=== PATIENT | male | born 1970 | race Two or more races ===

== ENCOUNTER 2016-03-26 01:25 | Emergency (ER) | payer BC ==
[~2016-03-26] VITALS: Ht 160 cm; Wt 68.5 kg
--- NOTE | 2016-03-26 01:46 | PHYS DOC ---
Past Medical History Past Medical History: No Pertinent History Past Surgical History: Appendectomy Alcohol Use: Occasionally Drug Use: None Adult General Chief Complaint Chief Complaint: SORE THROAT HPI HPI Patient is a 45 year old male who presents with sore throat. Patient reports pain started yesterday. He denies fever. He does have a cough. No nausea or vomiting. He has tried home remedies such as honey with insufficient relief. No other acute complaints. Review of Systems Review of Systems Constitutional: Denies fever or chills HENT: Sore throat Respiratory: Cough. Denies shortness of breath Cardiovascular: Denies chest pain GI: Denies abdominal pain, nausea, vomiting, bloody stools or diarrhea Integument: Denies rash or skin lesions Neurologic: Denies headache, focal weakness or sensory changes Current Medications Current Medications Current Medications Medications (Trade) Dose Ordered Sig/Tanna Start Time Stop Time Status Last Admin Dose Admin Naproxen (Naprosyn) 500 mg 1X ONCE 03/26/16 02:00 03/26/16 02:01 DC 03/26/16 02:33 500 MG Allergies Allergies Allergies Coded Allergies Type Severity Reaction Last Updated Verified No Known Drug Allergies 03/26/16 No Physical Exam Physical Exam Constitutional: Well developed, well nourished, no acute distress, non-toxic appearance HENT: Normocephalic, atraumatic, bilateral external ears normal. Oropharynx mildly erythematous without exudate; mild anterior cervical lymphadenopathy Eyes: EOMI, conjunctiva normal, no discharge Neck: Normal range of motion, no stridor Cardiovascular: Heart rate normal, regular rhythm, no murmur Lungs & Thorax: Bilateral breath sounds clear to auscultation Abdomen: Bowel sounds normal, soft, non-distended, no TTP Skin: Warm, dry, no erythema, no rash Extremities: No obvious deformity, no edema Neurologic: Alert and oriented X 3, no gross deficits noted Current Patient Data Vital Signs Vital Signs Date Time Temp Pulse Resp B/P Pulse Ox O2 Delivery O2 Flow Rate FiO2 03/26/16 02:30 78 143/94 03/26/16 01:38 98.7 16 95 Room Air 98.7 EKG EKG [] Radiology/Procedures Radiology/Procedures [] Course & Med Decision Making Course & Med Decision Making Pertinent Labs and Imaging studies reviewed. (See chart for details) Patient is 45-year-old male who presents with sore throat. Possible viral infection, given cough. Rapid strep ordered. Dose of naproxen given for pain control. Rapid strep negative. Discussed results with patient and veterans rehabilitation counselor. Patient discharged home with instructions for follow-up and return precautions. Petrona Disclaimer Petrona Disclaimer This electronic medical record was generated, in whole or in part, using a voice recognition dictation system. Departure Departure Impression: Primary Impression: Pharyngitis Disposition: HOME, SELF-CARE Condition: STABLE Patient Instructions: Viral Pharyngitis Additional Instructions: Thank you for allowing us to provide care today in the Emergency Department. Take the provided medication as directed. Schedule a follow up appointment with your primary care doctor. Return promptly to the Emergency Department if you develop any new or concerning symptoms. Scripts Naproxen 125 Mg/5 Ml Oral.[id number] Mg PO BID #120 ML Prov:TAYA LEACH MD 03/26/16 TAYA LEACH MD Mar 26, 2016 01:46
[2016-03-26] MEDS ORDERED: NAPROXEN 500 MG TABLET PO ONE (02:00)
[2016-03-26 02:30] VITALS: BP 143/94
[2016-03-26] MEDS ORDERED: NAPR125O4 PO (02:35)
[2016-03-26 08:52] LABS: NEGATIVE OBC STREP NEG; POSITIVE OBC STREP POS
== END 2016-03-26 02:39 | disposition home or self-care (01) ==
LOC: ER 01:25
DX: J02.9 Acute pharyngitis, unspecified (principal)
CPT/HCPCS: 87070; 87880; 99283

== ENCOUNTER 2017-08-03 11:00 | Emergency (ER) | payer OTHER, BC ==
[2017-08-03 11:28] LABS: ADD MAN DIFF? NO
[2017-08-03 11:35] LABS: BASO # 0.1 x10^3/uL (0.0-0.2); BASO % 1 % (0-3); EOS # 0.2 x10^3/uL (0.0-0.7); EOS % 2 % (0-3); HEMATOCRIT 43.6 % (39.0-53.0); HEMOGLOBIN 14.9 g/dL (13.0-17.5); LYMPH # 3.4 x10^3/uL (1.0-4.8); LYMPH % 35 % (24-48); MEAN CORPUSCULAR HEMOGLOBIN 30 pg (25-35); MEAN CORPUSCULAR HGB CONC 34 g/dL (31-37); MEAN CORPUSCULAR VOLUME 87 fL (79-100); MONO # 0.7 x10^3/uL (0.0-1.1); MONO % 8 % (0-9); NEUT # 5.4 x10^3uL (1.8-7.7); NEUT % 55 % (31-73); PLATELET COUNT 195 x10^3/uL (140-400); RED BLOOD COUNT 5.01 x10^6/uL (4.30-5.70); RED CELL DISTRIBUTION WIDTH 13.3 % (11.5-14.5); WHITE BLOOD COUNT 9.8 x10^3/uL (4.0-11.0)
[2017-08-03 11:38] LABS: ANION GAP 7 (6-14); BLOOD UREA NITROGEN 10 mg/dL (8-26); BUN/CREATININE RATIO 13 (6-20); CARBON DIOXIDE 27 mmol/L (21-32); CHLORIDE 103 mmol/L (98-107); CREATININE 0.8 mg/dL (0.7-1.3); GLUCOSE 97 mg/dL (70-99); POTASSIUM 4.2 mmol/L (3.5-5.1); SODIUM 137 mmol/L (136-145)
[2017-08-03 11:44] LABS: ALBUMIN 3.9 g/dL (3.4-5.0); ALK PHOS 97 U/L (46-116); ALT (SGPT) 70 U/L (16-63); AST (SGOT) 39 U/L (15-37); TOTAL BILIRUBIN 0.6 mg/dL (0.2-1.0); TOTAL PROTEIN 7.8 g/dL (6.4-8.2)
[2017-08-03 11:47] LABS: TROPONINI < 0.017 ng/mL (0.000-0.055)
== END 2017-08-03 13:06 | disposition home or self-care (01) ==
LOC: ER 11:00
DX: R07.2 Precordial pain (principal); Z82.49 Family history of ischemic heart disease and other diseases of the circulatory system; F17.210 Nicotine dependence, cigarettes, uncomplicated
CPT/HCPCS: 36415; 71046; 80053; 84484; 85025; 93005; 99285

== ENCOUNTER 2020-06-20 12:43 | Emergency (ER) | payer SELFPAY ==
[~2020-06-20] VITALS: Ht 157.5 cm; Wt 73.6 kg
[~2020-06-20 12:43] MED LIST: NAPR125O4 PO
--- NOTE | 2020-06-20 14:27 | RAD ---
Bilateral lower extremity venous Doppler dated 06/20/2020. No comparison available. Clinical data indication: Leg pain. FINDINGS: Grayscale, color-flow and spectral waveform analysis performed to include the deep venous system of [place] lower extremity. There is normal compressibility, phasicity and augmentation of flow throughout. No filling defects are seen. IMPRESSION: No evidence of lower extremity deep vein thrombosis. Electronically signed by: Antonio Ramirez MD (06/20/2020 2:25 PM) [id number]
[2020-06-20] MEDS: cloNIDine HCL 0.1 MG TABLET PO ONE (15:52)
[2020-06-20 17:02] VITALS: BP 145/91
--- NOTE | 2020-06-20 17:09 | PHYS DOC ---
Past Medical History Past Medical History: No Pertinent History, Hypertension Past Surgical History: Appendectomy, Other Additional Past Surgical Histo: kidney stones Smoking Status: Never Smoker Alcohol Use: Occasionally Drug Use: None General Adult EDM: Chief Complaint: LOWER EXTREMITY SWELLING HPI: HPI: Patient is a 49 year old male with a history of hypertension not on any medication who presents to the ED today complaining of 5 out of 10 bilateral lower extremity pain specifically from the knee to the ankles, pain has been going on since yesterday. Describes the pain as pulling. 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 Denies any chest pain or shortness of breath. Denies any injuries. Patient is Khmer speaking and interpretation was provided by the son Review of Systems: Review of Systems: Constitutional: Denies fever or chills. [] Eyes: Denies change in visual acuity. [] HENT: Denies nasal congestion or sore throat. [] Respiratory: Denies cough or shortness of breath. [] Cardiovascular: Denies chest pain or edema. [] GI: Denies abdominal pain, nausea, vomiting, bloody stools or diarrhea. [] : Denies dysuria. [] Musculoskeletal: Reports bilateral lower extremity pain. Denies back pain Integument: Denies rash. [] Neurologic: Denies headache, focal weakness or sensory changes. [] Psychiatric: Denies depression or anxiety. [] Heart Score: C/O Chest Pain: N/A Risk Factors: Risk Factors: DM, Current or recent (<one month) smoker, HTN, HLP, family history of CAD, obesity. Risk Scores: Score 0 - 3: 2.5% MACE over next 6 weeks - Discharge Home Score 4 - 6: 20.3% MACE over next 6 weeks - Admit for Clinical Observation Score 7 - 10: 72.7% MACE over next 6 weeks - Early Invasive Strategies Current Medications: Current Medications Medications (Trade) Dose Ordered Sig/Tanna Start Time Stop Time Status Last Admin Dose Admin Clonidine HCl (Catapres) 0.3 mg 1X ONCE 06/20/20 15:30 06/20/20 15:31 DC 06/20/20 15:52 0.3 MG Allergies: Allergies: Allergies Coded Allergies Type Severity Reaction Last Updated Verified No Known Drug Allergies 03/26/16 No Physical Exam: PE: Constitutional: Well developed, well nourished, no acute distress, non-toxic appearance. [] HENT: Normocephalic, atraumatic, bilateral external ears normal, oropharynx moist, no oral exudates, nose normal. [] Eyes: PERRLA, EOMI, conjunctiva normal, no discharge. [] Neck: Normal range of motion, no tenderness, supple, no stridor. [] Cardiovascular:Heart rate regular rhythm, no murmur [] Lungs & Thorax: Bilateral breath sounds clear to auscultation [] Abdomen: Bowel sounds normal, soft, no tenderness, no masses, no pulsatile masses. [] Skin: Warm, dry, no erythema, no rash. [] Back: No tenderness, no CVA tenderness. [] Extremities: No tenderness, no cyanosis, no clubbing, ROM intact, no edema. Negative Homans' sign bilaterally. Neurologic: Alert and oriented X 3, normal motor function, normal sensory function, no focal deficits noted. [] Psychologic: Affect normal, judgement normal, mood normal. [] Current Patient Data: Vital Signs: Vital Signs Date Time Temp Pulse Resp B/P (MAP) Pulse Ox O2 Delivery O2 Flow Rate FiO2 06/20/20 15:52 80 210/126 06/20/20 13:15 98.1 18 97 Room Air 98.1 EKG: EKG: [] Radiology/Procedures: Radiology/Procedures: []PROCEDURE: VENOUS LOWER EXT BILATERAL Bilateral lower extremity venous Doppler dated 06/20/2020. No comparison available. Clinical data indication: Leg pain. FINDINGS: Grayscale, color-flow and spectral waveform analysis performed to include the deep venous system of both lower extremity. There is normal compressibility, phasicity and augmentation of flow throughout. No filling defects are seen. IMPRESSION: No evidence of lower extremity deep vein thrombosis. Electronically signed by: Antonio Ramirez MD (06/20/2020 2:25 PM) [id number] DICTATED and SIGNED BY: ANTONIO RAMIREZ MD DATE: 06/20/20 [id number] Course & Med Decision Making: Course & Med Decision Making Pertinent Labs and Imaging studies reviewed. (See chart for details) This is a 49-year-old male patient presenting to the ED today complaining of lower extremity pain and swelling that began yesterday. 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 No obvious swelling was noted to bilateral lower extremities. Venous Dopplers of bilateral lower extremities are negative. Blood pressure 205/136 with a heart rate of 82 on arrival to the ED. Reports history of high blood pressure but does not take any medicine. Denies any chest pain or shortness of breath. Patient was given clonidine in the ED, BP has come down to 153/90. I spoke to patient and son about his hypertension. We agreed to start this patient on amlodipine and he will follow-up with the PCP. Petrona Disclaimer: Petrona Disclaimer: This electronic medical record was generated, in whole or in part, using a voice recognition dictation system. Departure Departure Impression: Primary Impression: Hypertension Qualified Codes: I10 - Essential (primary) hypertension Additional Impression: Lower extremity pain Qualified Codes: M79.604 - Pain in right leg; M79.605 - Pain in left leg Disposition: 01 DC HOME SELF CARE/HOMELESS Condition: STABLE Referrals: NO PCP (PCP) Please follow up with Dr. Wade Ronquillo [address] [place] [address] Patient Instructions: Hypertension, Musculoskeletal Pain Additional Instructions: You were evaluated for lower extremity swelling as well as high blood pressure. Your blood pressure was high in the emergency room. Please follow-up with the provided primary care doctor soon as possible. Your ultrasound of the lower extremities were negative. Take the prescribed medications as ordered. Scripts Diclofenac Potassium (DICLOFENAC POTASSIUM) 50 Mg Tablet 1 TAB PO BID, #30 TAB 0 Refills Prov: MARICEL SANDERS APRN 06/20/20 Amlodipine Besylate (AMLODIPINE BESYLATE) 10 Mg Tablet 10 MG PO DAILY, #30 TAB Prov: MARICEL SANDERS APRN 06/20/20 MARICEL SANDERS APRN Jun 20, 2020 17:09
[2020-06-20] MEDS ORDERED: AMLO-187 PO (17:19)
[2020-06-20] MEDS ORDERED: DICL50TA2 PO (17:24)
== END 2020-06-20 18:05 | disposition home or self-care (01) ==
LOC: ER 12:43
DX: I10 Essential (primary) hypertension (principal); M79.604 Pain in right leg; M79.605 Pain in left leg; R60.0 Localized edema; Z90.89 Acquired absence of other organs; Z98.890 Other specified postprocedural states
CPT/HCPCS: 93970; 99285

== ENCOUNTER 2021-06-17 20:06 | Emergency (ER) | payer BC ==
[~2021-06-17] VITALS: Ht 157.5 cm; Wt 69.9 kg
[~2021-06-17 20:06] MED LIST changes: +AMLO-187 PO; +DICL50TA2 PO
[2021-06-17] MEDS ORDERED: cloNIDine HCL 0.1 MG TABLET PO ONE ×2 (20:45→22:15)
[2021-06-17] MEDS ORDERED: ACETAMINOPHEN 500 MG TABLET PO ONE (20:45)
[2021-06-17 20:56] LABS: CALCIUM 8.6 mg/dL (8.5-10.1); CREATININE 1.1 mg/dL (0.7-1.3); GFR 71.4; POTASSIUM 3.6 mmol/L (3.5-5.1)
[2021-06-17] MEDS ORDERED: IBUPROFEN 400 MG TABLET. PO ONE (21:15)
--- NOTE | 2021-06-17 21:30 | PHYS DOC ---
Past Medical History Past Medical History: No Pertinent History, Hypertension Additional Past Medical Histor: DOES NOT TAKE MEDICATION FOR BP. HAS AN APPOINTMENT WITH PCP 06/25. Past Surgical History: Appendectomy, Other Additional Past Surgical Histo: kidney stones Smoking Status: Former Smoker Alcohol Use: None Drug Use: None Adult General Chief Complaint Chief Complaint: UPPER EXTREMITY PAIN HPI HPI The patient is a 50-year-old male with a history of hypertension not on medication and former tobacco abuse. He quit about 2 years ago. Patient has been seen here in the past for elevated blood pressure and started on amlodipine from the emergency department but has not followed up with a primary care physician about his elevated blood pressures. He does have an appointment to see a primary doctor in the office on the of this month for an initial establishment of care appointment. Mr. Hernandez presents for evaluation of 3 days of atraumatic left arm discomfort. Discomfort localizes to the radial side of the proximal forearm and the medial epicondyle. 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 Has not tried any medicine for symptoms. Blood pressure is notably elevated today without signs or symptoms of acute end organ damage. Patient and his son report that he took the amlodipine he was prescribed from this emergency department in 2020 but never followed up after it ran out. States he feels entirely well and specifically denies headache, nausea or vomiting, focal or lateralizing weakness, numbness or tingling, neck stiffness/pain/meningismus, vision changes, shortness of breath or chest pain, abdominal pain of any kind, oliguria, pain or swelling to arms or legs. Patient is Serbian speaking and son provides fluent interpretation. Fluent telephonic interpretation was offered but patient and family declined. Review of Systems Review of Systems A 12 point review of systems was completed and was negative except where noted in HPI above. Current Medications Current Medications Current Medications Medications (Trade) Dose Ordered Sig/Tanna Start Time Stop Time Status Last Admin Dose Admin Acetaminophen (Tylenol) 1,000 mg 1X ONCE 06/17/21 20:45 06/17/21 20:46 DC 06/17/21 20:44 1,000 MG Amlodipine Besylate (Norvasc) 10 mg 1X STAT 06/17/21 20:31 06/17/21 20:38 DC 06/17/21 20:46 10 MG Clonidine HCl (Catapres) 0.1 mg 1X ONCE 06/17/21 22:15 06/17/21 22:16 DC 06/17/21 22:20 0.1 MG Ibuprofen (Motrin) 800 mg 1X ONCE 06/17/21 21:15 06/17/21 21:16 DC 06/17/21 21:29 800 MG Allergies Allergies Allergies Coded Allergies Type Severity Reaction Last Updated Verified No Known Drug Allergies 03/26/16 No Physical Exam Physical Exam 50-year-old male appearing nontoxic and in no acute distress. Head is normocephalic and atraumatic. Neck is supple and nontender. Oropharynx is moist. Lungs are clear to auscultation at all stations. There is a normal S1 and S2 without rubs or gallops and capillary refill is appropriate, less than 2 seconds globally. Abdomen is soft, nontender and nondistended. No pulsatile mass. Skin is warm and dry without cyanosis, clubbing or edema. Psychiatrically, the patient demonstrates appropriate mood and affect and is alert. Evaluation of the extremities reveals BUEs and BLEs neurovascularly intact distally with strength out of 5, sensation intact light touch in all nerve distributions, radial, DP and PT pulses 2+ equal bilaterally, capillary refill less than 2 seconds, hands and feet warm and well-perfused. No dependent peripheral edema distally. No calf tenderness or swelling bilaterally. Homans test is negative bilaterally. Neurologically, patient moves all extremities equally, is alert and oriented x4 no lateralizing deficits are seen. Evaluation of the left upper extremity is remarkable for LUE neurovascular intact distally with strength of the 5, sensation intact light touch in all nerve distributions, radial pulse 2+, capillary refill less than 2 seconds, hand warm and well- perfused. There is localized tenderness over the medial epicondyle and proximal wrist flexor muscles. There is pain with resisted wrist flexion with the elbow in full extension and pain with passive wrist extension with the elbow in full extension. Current Patient Data Vital Signs Vital Signs Date Time Temp Pulse Resp B/P (MAP) Pulse Ox O2 Delivery O2 Flow Rate FiO2 06/17/21 22:39 176/112 (133) 06/17/21 22:21 85 18 96 Room Air 06/17/21 20:14 98.5 98.5 Lab Values Laboratory Tests Test 06/17/21 20:36 Sodium Level 140 mmol/L (136-145) Potassium Level 3.6 mmol/L (3.5-5.1) Chloride Level 101 mmol/L (98-107) Carbon Dioxide Level 29 mmol/L (21-32) Anion Gap 10 (6-14) Blood Urea Nitrogen 18 mg/dL (8-26) Creatinine 1.1 mg/dL (0.7-1.3) Estimated GFR (Cockcroft-Gault) 71.4 Glucose Level 116 mg/dL (70-99) H Calcium Level 8.6 mg/dL (8.5-10.1) Laboratory Tests 06/17/21 20:36 EKG EKG [] Course & Med Decision Making Course & Med Decision Making Clinical scenario is compatible with medial epicondylitis, likely from repetitive use at work. Plan to address patient's chief complaint is cock-up splint, sling and referral to orthopedics for close follow-up in the office. Will address elevated blood pressure with medicine as per flowsheet but hypertension is chronic and longstanding and there is no evidence of end organ damage today. Will check basic chemistries to ensure renal function is appropriate for use of NSAIDs at home and if so will plan for an NSAID course at discharge. We will plan to prescribe a bridge course of blood pressure medication to get patient to his establishment appointment with his primary doctor in a week. Patient understands and agrees. 2243: Patient has been observed uneventfully here for some time here in the emergency department. Blood pressure has come down significantly. It remains elevated but as above there are no signs or symptoms of acute end organ damage today, patient has longstanding problems with uncontrolled hypertension, and he does have a close follow-up appointment scheduled with a new primary doctor in the office in about a week. Renal panel unremarkable, as are rest of basic chemistries. Will prescribe 10 mg amlodipine daily and 600 mg of ibuprofen every 6 hours on a schedule for the next few days. Patient is to rest, ice and elevate. Will provide Velcro cock-up splint and sling for comfort. Will refer to Dr. Xie of orthopedics for close follow-up in the office. Patient and his son understand that if he feels worse instead of better or develops other new symptoms of concern that he should return to the emergency department right away for reevaluation. Questions are answered. Roseon Disclaimer Dragon Disclaimer This electronic medical record was generated, in whole or in part, using a voice recognition dictation system. Departure Departure Impression: Primary Impression: Medial epicondylitis, left elbow Additional Impression: Benign essential hypertension Disposition: HOME / SELF CARE / HOMELESS Condition: IMPROVED Referrals: ULISES XIE MD Patient Instructions: Epicondylitis, Medial (Golfer's Elbow) with Rehab- [facility], Hypertension Additional Instructions: Follow-up very closely with your primary care doctor in the office in the next 1 week as already scheduled for a reevaluation of your symptoms and a discussion of next best steps in care. Your blood pressure was elevated today in the emergency department. We have prescribed a blood pressure medication called amlodipine which you should take once daily as prescribed to help your blood pressure. Please make sure to have your blood pressure readdressed by your primary doctor at your upcoming appointment. Wear the Velcro splint and sling for comfort and support although it is okay to take off the splint to shower and to take off the sling when you are working. Take a 600 mg ibuprofen pill every 6 hours for discomfort. Suggest you take ibuprofen every 6 hours on a schedule for the next 5 days, and then every 6 hours as needed after that. Rest, ice and elevate your arm. Return to the emergency department right away for worsening symptoms of any kind or with any other new symptoms of concern. We are referring you to Dr. Xie of orthopedics ([facility]) for further evaluation and treatment of your arm discomfort. Please call her office at the telephone number provided to make an appointment to be seen within the next 1 week. Call tomorrow. Scripts Ibuprofen (IBUPROFEN) 600 Mg Tablet 600 MG PO PRN Q6HRS PRN for PAIN, #40 TAB take with food or milk Prov: ANTOINE BARNETT MD 06/17/21 Amlodipine Besylate (AMLODIPINE BESYLATE) 10 Mg Tablet 10 MG PO DAILY, #30 TAB Prov: ANTOINE BARNETT MD 06/17/21 Problem Qualifiers ANTOINE BARNETT MD Jun 17, 2021 21:30
[2021-06-17 22:39] VITALS: BP 176/112
[2021-06-17] MEDS ORDERED: IBUP-1007 PO (22:48)
[2021-06-17] MEDS ORDERED: AMLO-187 PO (22:48)
== END 2021-06-17 23:00 | disposition home or self-care (01) ==
LOC: ER 20:06
DX: M77.02 Medial epicondylitis, left elbow (principal); I10 Essential (primary) hypertension; Z87.891 Personal history of nicotine dependence
CPT/HCPCS: 29125; 36415; 80048; 99285; A4565